=== PATIENT | female | born 1995 | race Caucasian/White ===

== ENCOUNTER 2024-02-26 00:18 | Emergency (ER) | payer OTHER, SELFPAY ==
[2024-02-26 00:20] VITALS: BP 105/69; PULSE 76; RESP 15; TEMP 36.4; O2SAT 100; BMI 21.8
--- NOTE | 2024-02-26 00:50 | EDS_ITS ---
HPI History of Present Illness Chief Complaint: Lower Extremity Injury Informant: patient Narrative Narrative: Less than 24 hours worth of spontaneous onset of painful redness in the left medial thigh. Just delivered a baby 4 days ago. Has a history of varicose veins but no history of SVT or DVT. Denies any chest pain, shortness of breath, palpitations, syncope or near syncope. No fevers or chills. No systemic symptoms. No recent injury. PFSH PFSH Medical History no medical history no medical history Allergy/AdvReac Type Severity Reaction Status Date / Time No Known Allergies Allergy Verified 02/26/24 00:25 ROS ROS ED Constitutional Constitutional ED: Denies chills or fever(s) Musculoskeletal Musculoskeletal: Reports extremity pain; Denies neck pain Integumentary Reports rash; Denies Abrasions or wounds Neurologic Neurologic: Denies paresthesias or weakness EXAM Physical Exam Const Vital Signs: 02/26/24 00:20 Temperature 97.5 F L Temperature Source Temporal Pulse Rate 76 Respiratory Rate 15 Blood Pressure 105/69 Blood Pressure Mean 81 Pulse Ox 100 Oxygen Delivery Method Room Air Positive well nourished and well developed General Appearance ED: well developed and NAD Neck full ROM and supple Back/Spine normal ROM and normal to inspection Extremity full ROM Extremity Narrative: Multiple varicose veins both lower extremities. On the left lower extremity, there is a sore tender area of erythema medial left lower leg in the middle of it, but a much larger tender area with a just subcutaneous palpable nodule/superficial venous clot in the medial left thigh with a longitudinal area of erythema that progresses about 4 cm proximally and almost to the knee, does not go to the groin no inguinal lymphadenopathy. No distal edema bilaterally. Neuro oriented x3, no focal motor deficits and no sensory deficits noted Sensorium / Orientation: alert Psych mental status grossly normal and thought process normal Skin no wounds Rashes: no rashes MDM MDM MDM Narrative Medical decision making narrative: Patient presents after midnight when venous duplex ultrasound is not available. I suspect this is probably a superficial venous thrombosis and treatment would be aspirin and warm compresses and close outpatient follow-up if that is the case. She is at an increased risk for DVT given her recent and delivery, so we discussed options which include a D-dimer, or just setting her up for an ultrasound tomorrow morning and skipping the D-dimer. They were amenable to doing the D-dimer first. This was elevated, which is nonspecific but not sensitive enough to rule out a DVT. For this reason she will be set up for an outpatient ultrasound, advised to take aspirin daily in the meantime, she was given a 24-hour dose of Lovenox 1.5 mg/kg subcu here prior to discharge with outpatient instructions to get ultrasound. Lab Data Attestation: I reviewed the patient's lab results. Labs: Laboratory Results - last 24 hr 02/26/24 00:55 D-Dimer Quant (PE/DVT) 1.36 H* Discharge Plan Triage Chief Complaint: Lower Extremity Injury ED Provider: Justen Tyson Dx/Rx/DC Orders Clinical Impression: Acute superficial venous thrombosis of left lower extremity Instructions: Venous Thromboembolism Other Ambulatory Orders: Venous Duplex US, Unilateral (Stat) Facility: [facility] - Location: [facility] Ordered By: Dr. Justen Tyson Primary Care Provider: Nba Mckeon Referrals: Nba Mckeon, [Primary Care Provider] - As Needed (after ultrasound) Print Language: [place] Disposition Disposition: Home, Self Care
[2024-02-26] MEDS: Aspirin 81 MG TAB.CHEW 324 MG PO (01:03)
[2024-02-26 02:00] LABS: D-Dimer Quantitative (DVT/PE) 1.36 FEU/ug/m (0.27-0.49)
[2024-02-26 02:19] VITALS: BP 107/72; PULSE 79; RESP 16; TEMP 36.2; O2SAT 99
[2024-02-26] MEDS: Enoxaparin 100 MG/ML Syringe SC (02:19)
== END 2024-02-26 02:24 | disposition home or self-care (01) ==
PROVIDERS: Emergency Provider Emergency Medicine; PCP Family Medicine; Visit Provider Emergency Medicine
DX: I82.812 Embolism and thrombosis of superficial veins of left lower extremity (principal)
CPT/HCPCS: 85379; 96372; 99282

== ENCOUNTER → 2024-02-27 | Outpatient (CLI) | payer SELFPAY, OTHER ==
--- NOTE | 2024-02-27 14:57 | VDLE_ITS ---
Reason For Study: Left leg pain Procedure LEFT This is a venous duplex using B-mode, color CFV is compressible, spontaneous, phasic, flow and spectral Doppler. competent, and demonstrates normal Exam performed in department. augmentation. A preliminary report was called and/or faxed FV is compressible, spontaneous, phasic, to PCP: Aliya PUENTES. competent and demonstrates normal augmentation. POP V is compressible, spontaneous, phasic, competent and demonstrates normal augmentation. T/P Trunk is compressible. PTV is compressible. LT PerV is compressible. Acute superficial vein thrombosis is noted in the left GSV at distal thigh. Thrombus filled varicose veins noted in the left mid-distal thigh and mid-distal calf. VL/Venous Duplex US, Unilateral Interpretation Summary Acute superficial vein thrombosis is noted in the left great saphenous vein and adjacent varicosities in the distal thigh/calf. Deep veins of the left lower extremity are patent and compressible segmentally. There is no evidence of left lower extremity deep vein thrombosis. Ordering Physician: Justen Tyson Referring Physician: Nba Mckeon Performed By: Esme Mckeon RVT
== END | disposition home or self-care (01) ==
PROVIDERS: PCP Family Medicine; Referring Provider Emergency Medicine; Visit Provider Emergency Medicine
DX: M79.605 Pain in left leg (principal)
CPT/HCPCS: 93971

== ENCOUNTER → 2024-07-02 | Outpatient (CLI) | payer OTHER, SELFPAY ==
--- NOTE | 2024-07-02 17:40 | RAD_ITS ---
INDICATION: CP, DYSPNEA EXAMINATION/TECHNIQUE: X-RAY - XR Chest 2 Views COMPARISON: FINDINGS: LINES/DEVICES: None. LUNGS: No consolidation, edema or effusion. No pneumothorax. MEDIASTINUM AND CARDIOVASCULAR STRUCTURES: Cardiac silhouette not enlarged. Central airways and mediastinal contour are unremarkable. BONES AND SOFT TISSUES: Mild thoracic dextroscoliosis.. RAD/Chest PA and Lateral IMPRESSION: No radiographic evidence of acute cardiopulmonary disease. Electronically Signed: Chavo Rashid DO at 19:19 EDT ,
== END | disposition home or self-care (01) ==
LOC: RAD 17:25
PROVIDERS: PCP Family Medicine; Referring Provider Nurse Practitioner Family; Visit Provider Nurse Practitioner Family
DX: R07.9 Chest pain, unspecified (principal)
CPT/HCPCS: 71046